=== PATIENT | female | born 1995 | race Hispanic/Latino ===

== ENCOUNTER 2020-05-18 10:51 | Emergency (ER) | payer OTHER ==
[~2020-05-18] VITALS: Ht 167.6 cm; Wt 48.1 kg
[2020-05-18] MEDS ORDERED: PROZAC20 MG PO (11:11)
[2020-05-18] MEDS ORDERED: OMEPRAZOLE20 MG PO (11:11)
[2020-05-18] MEDS ORDERED: ONDANSETRON ODT8 MG PO (11:12)
--- OUTSIDE RECORDS SUMMARY | 2020-05-18 13:52 | XMS ---
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 [place] - 2 Visits in 30 Days CARE PROVIDERS RUKHSANA [facility] Current PHONE: [phone] Chani has no Care Guidelines for this patient. Kasia VISIT COUNT (12 MO.) [address] TOTAL 4 NOTE: Visits indicate total known visits. ED/UCC VISIT TRACKING (12 MO.) 05/18/2020 10:53 [facility] [place] TYPE: Emergency COMPLAINT: - ABDOMINAL PAIN, NAUSEA 05/15/2020 08:40 [facility] TYPE: Emergency DIAGNOSES: - Panic disorder [episodic paroxysmal anxiety] - ANXIETY VOMITING 03/16/2020 04:36 [facility] [place] TYPE: Emergency DIAGNOSES: - Generalized anxiety disorder - NAUSEA ANXIETY 02/08/2020 10:24 [facility] TYPE: Emergency DIAGNOSES: - Epigastric pain - abd pain, reflux INPATIENT VISIT TRACKING (12 MO.) No inpatient visits to display in this time frame [email or web address]
[2020-05-18] MEDS ORDERED: HYDROCODON-ACE1 EA10 PO (15:08)
== END 2020-05-18 15:56 | disposition home or self-care (01) ==
LOC: ED 10:51
DX: K52.9 Noninfective gastroenteritis and colitis, unspecified (principal); Z79.899 Other long term (current) drug therapy
CPT/HCPCS: 74177; 80053; 81001; 83690; 84703; 85025; 85651; 86140; 87324; 87449; 87493; 99284-25; J1170; J1790; J7030; Q9967

== ENCOUNTER 2020-06-08 12:50 | Emergency (ER) | payer OTHER ==
[~2020-06-08] VITALS: Ht 167.6 cm; Wt 50.8 kg
[~2020-06-08 12:50] MED LIST: HYDROCODON-ACE1 EA10 PO; OMEPRAZOLE20 MG PO; ONDANSETRON ODT8 MG PO; PROZAC20 MG PO
--- OUTSIDE RECORDS SUMMARY | 2020-06-08 12:52 | XMS ---
PreManage Notification: CHRISTOPHER WOODARD Security [employer] Events No recent Security Events currently on file CRITERIA MET - PDMP - COVID-19 Positive Lab Results - [facility] [place] - 2 Visits in 30 Days CARE PROVIDERS RUKHSANA [facility] Current PHONE: [phone] Chani has no Care Guidelines for this patient. Kasia VISIT COUNT (12 MO.) 3 [facility] [address] TOTAL 5 NOTE: Visits indicate total known visits. ED/UCC VISIT TRACKING (12 MO.) 06/08/2020 12:51 [facility] [place] TYPE: Emergency COMPLAINT: - ANXIETY ATTACK 05/18/2020 10:53 [facility] [place] TYPE: Emergency COMPLAINT: - ABDOMINAL PAIN, NAUSEA DIAGNOSES: - Other terminal operator (current) drug therapy - Noninfective gastroenteritis and colitis, unspecified - Lower abdominal pain, unspecified 05/15/2020 08:40 [facility] [place] TYPE: Emergency DIAGNOSES: - Panic disorder [episodic paroxysmal anxiety] - ANXIETY VOMITING 03/16/2020 04:36 [facility] DIAGNOSES: - Generalized anxiety disorder - NAUSEA ANXIETY 02/08/2020 10:24 [facility] [place] TYPE: Emergency DIAGNOSES: - Epigastric pain - abd pain, reflux INPATIENT VISIT TRACKING (12 MO.) No inpatient visits to display in this time frame [email or web address]
[2020-06-08] MEDS ORDERED: CLONAZEPAM0.5 MG PO (13:07)
== END 2020-06-08 15:52 | disposition home or self-care (01) ==
LOC: ED 12:50
DX: F41.0 Panic disorder [episodic paroxysmal anxiety] (principal); Z79.899 Other long term (current) drug therapy
CPT/HCPCS: 80053; 83735; 84443; 85025; 96372; 99283; J2060; Q0163